=== PATIENT | female | born 1965 | race Hispanic/Latino ===

== ENCOUNTER → 2017-06-06 | Outpatient (CLI) | payer OTHER ==
--- NOTE | 2017-06-06 10:52 | Diagnostic Imaging Report ---
PROCEDURE:US RETROPERITONEAL ( KIDNEY ). COMPARISON:None. INDICATIONS:Hypertension TECHNIQUE: Medrano-scale and color sonographic images of the bilateral kidneys and bladder where obtained in transverse and longitudinal planes. FINDINGS: RIGHT KIDNEY: 9.4 cm, cortex 1.3 cm Cysts: None. Solid masses: None. Stones: None. Hydronephrosis: None. Echogenicity: Normal. LEFT KIDNEY: 9.9 cm, cortex 2.4 cm Cysts: None. Solid masses: None. Stones: None. Hydronephrosis: None. Echogenicity: Normal. Bladder: In the normal contour. Bilateral ureteral jets are visualized. CONCLUSION: No acute sonographic abnormality. Dictated by: Bon Quiroz M.D. on 06/06/2017 at 10:52 Electronically approved by: Bon Quiroz M.D. on 06/06/2017 at 10:52
--- NOTE | 2017-06-06 12:06 | Diagnostic Imaging Report ---
PROCEDURE: RENAL DOPPLER ULTRASOUND COMPARISON:None. INDICATIONS:Hypertension FINDINGS: Multiple sagittal and axial images of the right and left kidneys were obtained. RIGHT KIDNEY: The right kidney measures 9.9 cm. The cortical thickness is 1.4 cm. The right kidney has normal echogenicity. There are no masses, hydronephrosis or calculi. The highest right main renal artery PSV is 83 cm/sec. The highest right hilar artery PSV is 121 cm/sec. The highest right arcuate artery PSV is 56.8 cm/sec. LEFT KIDNEY: The left kidney measures 9.4 cm. The cortical thickness is 1.8 cm. The left kidney has normal echogenicity. There are no masses, hydronephrosis or calculi. The highest left main renal artery PSV is 157 cm/sec. The highest left hilar artery PSV is 127 cm/sec. The highest left arcuate artery PSV is 69.3 cm/sec. The abdominal aorta PSV is 95.8 cm/sec. The right renal artery/aorta ratio is 1.3. The left renal artery/aorta ratio is 1.6. The right and left renal veins are patent. The bladder is unremarkable. CONCLUSION: No acute sonographic abnormality. No sonographic evidence for renal artery stenosis. Dictated by: Bon Quiroz M.D. on 06/06/2017 at 12:06 Electronically approved by: Bon Quiroz M.D. on 06/06/2017 at 12:06
== END ==
LOC: US 06:49
PROVIDERS: ATTEND Internal Medicine Cardiovascular Disease
DX: I10 Essential (primary) hypertension (principal)
CPT/HCPCS: 76770; 93976